=== PATIENT | female | born 1980 | race Caucasian/White ===

== ENCOUNTER 2022-05-17 13:19 | Outpatient (CLI) | payer BC, SELFPAY ==
[2022-05-17 16:30] LABS: SARS PCR* Negative SARS-CoV-2 (Negative); Strep A DNA Probe* NOT DETECTED (Not Detectd)
== END 2022-05-17 13:20 | disposition home or self-care (01) ==
PROVIDERS: PCP Internal Medicine; Visit Provider Nurse Practitioner Family
DX: Z20.822 Contact with and (suspected) exposure to COVID-19 (principal); J02.9 Acute pharyngitis, unspecified
CPT/HCPCS: 87635; 87651

== ENCOUNTER 2022-11-25 08:25 | Outpatient (CLI) | payer BC, SELFPAY | END 2022-11-25 08:26 | disposition home or self-care (01) | PROVIDERS: PCP Nurse Practitioner Family; Visit Provider Internal Medicine | DX: J32.9 Chronic sinusitis, unspecified (principal); Z13.6 Encounter for screening for cardiovascular disorders; Z13.9 Encounter for screening, unspecified | CPT/HCPCS: 80053; 80061; 82103 ==

== ENCOUNTER 2023-01-02 10:33 | Outpatient (CLI) | payer BC, SELFPAY ==
[2023-01-02 14:18] LABS: SARS PCR* POSITIVE SARS-CoV-2 (Negative)
== END 2023-01-02 10:34 | disposition home or self-care (01) ==
LOC: KYNREF 10:33
PROVIDERS: PCP Nurse Practitioner Family; Visit Provider Nurse Practitioner Family
DX: R50.9 Fever, unspecified (principal)
CPT/HCPCS: 87635

== ENCOUNTER 2024-03-16 15:20 | Outpatient (CLI) | payer BC, SELFPAY ==
[2024-03-16 22:40] LABS: PCR FLU A POSITIVE PCR FLU A (Negative); PCR FLU B Negative PCR FLU B (Negative); SARS PCR* Negative SARS-CoV-2 (Negative)
== END 2024-03-16 15:21 | disposition home or self-care (01) ==
LOC: KYNREF 15:20
PROVIDERS: PCP Nurse Practitioner Family; Visit Provider Nurse Practitioner Family
DX: J02.9 Acute pharyngitis, unspecified (principal)
CPT/HCPCS: 87631